=== PATIENT | female | born 1955 | race Caucasian/White ===

== ENCOUNTER 2019-12-16 13:35 | Day surgery (SDC) | payer BC ==
[~2019-12-16] VITALS: Ht 152.4 cm; Wt 61.6 kg
[2019-12-16] MEDS ORDERED: PROG100 PO (14:04)
[2019-12-16] MEDS ORDERED: FORTESTA60 GM TD (14:04)
[2019-12-16] MEDS ORDERED: DHEA PO (14:05)
[2019-12-16] MEDS ORDERED: Vitamin D2000 UNIT (14:05)
[2019-12-16] MEDS ORDERED: CYAN500 (14:05)
[2019-12-16] MEDS ORDERED: MAGSULP (14:05)
[2019-12-16] MEDS ORDERED: IRON150C (14:05)
== END 2019-12-16 16:05 | disposition home or self-care (01) ==
LOC: ORSCSDS 13:35
PROVIDERS: Internal Medicine Gastroenterology
PROC: 0DBK8ZX Excision of Ascending Colon, Via Natural or Artificial Opening Endoscopic, Diagnostic (ICD-10-PCS; principal; 2019-12-16 15:00)
PROC: 0DB58ZX Excision of Esophagus, Via Natural or Artificial Opening Endoscopic, Diagnostic (ICD-10-PCS; principal; 2019-12-16 15:00)
PROC: 0D757ZZ Dilation of Esophagus, Via Natural or Artificial Opening (ICD-10-PCS; principal; 2019-12-16 15:00)
PROC: 0DBH8ZX Excision of Cecum, Via Natural or Artificial Opening Endoscopic, Diagnostic (ICD-10-PCS; principal; 2019-12-16 15:00)
PROC: 0DB78ZX Excision of Stomach, Pylorus, Via Natural or Artificial Opening Endoscopic, Diagnostic (ICD-10-PCS; principal; 2019-12-16 15:00)
DX: R13.14 Dysphagia, pharyngoesophageal phase (principal); Z12.11 Encounter for screening for malignant neoplasm of colon; Z86.010 Personal history of colon polyps; D12.0 Benign neoplasm of cecum; D12.2 Benign neoplasm of ascending colon; K57.30 Diverticulosis of large intestine without perforation or abscess without bleeding; K44.9 Diaphragmatic hernia without obstruction or gangrene; K29.60 Other gastritis without bleeding; Z79.899 Other long term (current) drug therapy
CPT/HCPCS: 86803; 87081; 88305; 88342; J2704; J7120

== ENCOUNTER 2021-03-02 14:35 | Emergency (ER) | payer BC ==
[~2021-03-02] VITALS: Ht 152.4 cm; Wt 68.0 kg
[~2021-03-02 14:35] MED LIST: CYAN500; DHEA PO; FORTESTA60 GM TD; IRON150C; MAGSULP; PROG100 PO; Vitamin D2000 UNIT
[2021-03-02 15:02] LABS: BASOPHILS ABSOLUTE AUTO 0.08 K/mm3 (0.00-0.23); BASOPHILS PERCENT AUTO 1 % (0-2); EOSINOPHILS ABSOLUTE AUTO 0.12 K/mm3 (0.00-0.68); EOSINOPHILS PERCENT AUTO 2 % (0-6); Hematocrit 41.3 % (33.0-51.0); Hemoglobin 13.7 g/dL (11.5-16.0); IMMATURE GRAN ABSOLUTE AUTO 0.02 K/mm3 (0.00-0.10); IMMATURE GRAN PERCENT AUTO 0 % (0-1); LYMPHOCYTES ABSOLUTE AUTO 2.35 K/mm3 (0.84-5.20); LYMPHOCYTES PERCENT AUTO 34 % (21-46); MONOCYTES ABSOLUTE AUTO 0.76 K/mm3 (0.16-1.47); MONOCYTES PERCENT AUTO 11 % (4-13); Mean Corpuscular HGB 30.6 pg (26.0-34.0); Mean Corpuscular HGB Conc 33.2 g/dL (31.5-36.5); Mean Corpuscular Volume 92 fL (80-100); Mean Platelet Volume 9.5 fL (9.1-12.4); NEUTROPHILS PERCENT AUTO 52 % (41-73); Platelet Count 283 K/mm3 (150-400); RDW Coefficient Variation 13.6 % (11.7-14.2); RDW Standard Deviation 46.1 fL (35.1-46.3); Red Blood Cell Count 4.47 M/mm3 (3.80-5.20); White Blood Cell Count 6.93 K/mm3 (4.00-11.30)
[2021-03-02 15:23] LABS: Alanine Aminotransfer (ALT/SGP 20 U/L (12-78); Albumin, Blood 3.7 g/dL (3.4-5.0); Albumin/Globulin Ratio 1.1 (0.8-1.8); Alk Phos 92 U/L (50-136); Anion Gap 5 mmol/L (6-16); Aspartate Aminotrans (AST/SGOT 25 U/L (12-37); Bilirubin, Total 0.3 mg/dL (0.1-1.0); Blood Urea Nitrogen 9 mg/dL (8-24); Bun/Creatinine Ratio 12.6 (12.0-20.0); CO2, Blood 26 mmol/L (21-32); Calcium, Blood 8.9 mg/dL (8.5-10.1); Chloride, Blood 110 mmol/L (98-108); Creatinine, Blood 0.71 mg/dL (0.40-1.00); Globulin, Blood 3.5 g/dL (2.2-4.0); Glomerular Filtration Rate >60 (60-); Glucose, Blood 91 mg/dL (70-99); Potassium, Blood 3.8 mmol/L (3.5-5.5); Sodium, Blood 141 mmol/L (136-145); Total Protein, Blood 7.2 g/dL (6.4-8.2); Troponin I <0.015 ng/mL (0.000-0.040)
[2021-03-02 18:21] LABS: Source, Urine Clean Catch
[2021-03-02 18:24] LABS: Bilirubin, Urine Neg (Neg); Blood, Urine Neg (Neg); Glucose Qualitative, Urine Neg (Neg); Ketones, Urine Neg (Neg); Leukocyte Esterase, Urine Neg (Neg); Nitrite, Urine Neg (Neg); Protein, Urine Neg (Neg); Specific Gravity, Urine 1.005 (1.003-1.022); Urobilinogen, Urine NORM (Normal)
[2021-03-02 18:33] LABS: Appearance, Urine Clear (Clear); Color, Urine Pale Yellow (P-Yellow)
== END 2021-03-02 19:46 | disposition home or self-care (01) ==
LOC: ER 14:35
PROVIDERS: Physician Assistant
DX: I10 Essential (primary) hypertension (principal); R07.9 Chest pain, unspecified; Z88.8 Allergy status to other drugs, medicaments and biological substances; Z79.899 Other long term (current) drug therapy
CPT/HCPCS: 36415; 71046; 80053; 81003; 84484; 85025; 93005; 93010; 99285-25

== ENCOUNTER → 2024-07-07 | Outpatient (CLI) | payer OTHER | END | disposition home or self-care (01) | LOC: LAB 11:20 → LAB SHORT 11:20 | DX: N39.0 Urinary tract infection, site not specified (principal) | CPT/HCPCS: 87077; 87086; 87186 ==